=== PATIENT | female | born 1980 | race Caucasian/White ===

== ENCOUNTER 2021-07-10 13:11 | Emergency (ER) | payer OTHER ==
[~2021-07-10] VITALS: Ht 165.1 cm; Wt 100.0 kg
--- NOTE | 2021-07-10 14:57 | PHYS DOC ---
General Adult EDM: Chief Complaint: SORE THROAT HPI: HPI: Patient is a 41 year old female who presents with this 2-day history of sore throat and tongue swelling. Patient states that her pain worsened this morning and "all [she] wants to do is drool on [her]self and cry." [facility] yesterday. She was given a prescription for anxiety, cephalosporin antibiotic and a steroid pill. She reports she was told the steroid is on back order, and will be provided with the prescription today. Patient denies any hives, daily medications including lisinopril, or similar symptoms previously. Patient does report a food allergy to eggs, but she states she has to eat a large amount and she gets diarrhea. Patient has a gastric sleeve. She denies any known inciting events. Patient denies hives, skin swelling, urticaria, chest pain, palpitations, shortness of breath, cough, abdominal pain, NVD. (CATHERINE KING) Review of Systems: Review of Systems: 12 systems reviewed. ROS negative except as mentioned in HPI. (CATHERINE KING) Allergies: Allergies: Allergies Coded Allergies Type Severity Reaction Last Updated Verified Penicillins Allergy Unknown 07/10/21 Yes egg Allergy Unknown 07/10/21 Yes (CATHERINE KING) Physical Exam: PE: Constitutional: Well developed, well nourished, no acute distress, non-toxic appearance. HENT: Normocephalic, atraumatic, bilateral external ears normal, oropharynx moist, no macroglossia appreciated, no oral exudates, nose normal. Eyes: PERRLA, EOMI, conjunctiva normal, no periorbital swelling, no discharge. Neck: Normal range of motion, anterior cervical lymphadenopathy, no stridor. Cardiovascular: Heart rate regular rhythm, no murmur. Lungs & Thorax: Bilateral breath sounds clear to auscultation. Skin: Warm, dry, no erythema, no rash. (CATHERINE KING) Current Patient Data: Vital Signs: VS - Last 72 Hours, by Label Date Time Temp Pulse Resp B/P (MAP) Pulse Ox O2 Delivery O2 Flow Rate FiO2 07/10/21 15:06 97.8 79 16 127/68 (87) 99 (CATHERINE KING) Heart Score: C/O Chest Pain: No (CATHERINE KING) Course & Med Decision Making: Course & Med Decision Making Pertinent Labs and Imaging studies reviewed. (See chart for details) After initial interview and exam, patient was offered dexamethasone and Benadryl, which she declined. Patient requested to sign out AMA. I encouraged her to stay for intervention to improve her symptoms. Patient was made aware of risks of leaving AMA without treatment, including worsening symptoms, airway compromise, and permanent disability. (CATHERINE KING) Course & Med Decision Making Did not see or evaluate patient. Did not discuss patient with PA. Agree with PAs work-up and disposition per note. (INEZ MCKENZIE MD) Dragon Disclaimer: Dragon Disclaimer: This electronic medical record was generated, in whole or in part, using a voice recognition dictation system. (CATHERINE KING) Departure Departure: Impression: Primary Impression: Left against medical advice Disposition: 07 LEFT AGAINST MEDICAL ADVICE Condition: GUARDED Referrals: PCP,NO (PCP) CATHERINE KING Jul 10, 2021 14:57 INEZ MCKENZIE MD Jul 10, 2021 16:41
[2021-07-10 15:06] VITALS: BP 127/68
== END 2021-07-10 14:55 | disposition left against medical advice (07) ==
LOC: ER 13:11
DX: J02.9 Acute pharyngitis, unspecified (principal); Z88.0 Allergy status to penicillin
CPT/HCPCS: 99281